=== PATIENT | male | born 1980 | race Caucasian/White ===

== ENCOUNTER 2017-03-23 18:16 | Inpatient (IN) | payer OTHER ==
[~2017-03-23] VITALS: Ht 175.3 cm; Wt 105.7 kg
--- NOTE | ~2017-03-23 | EKG ---
[address] [address] ELECTROCARDIOGRAM REPORT Name: ROYA STILES Room #: 236-P ADM IN M.R.#: [id number] Admission: 03/23/17 Attend Phys: Ang Andrew MD Discharge: Date of : 82 Report #: [id number] THIS REPORT FOR: //name// [facility] Test Date: 2017-03-26 Test Time: 15:02:10 Pat Name: ROYA STILES Department: Room: 236 P Gender: M Locum Tenens Psychiatrist: Ching LAGOS : 1980 Requested By: Frankie Morrissey Order Number: [id number] MD: Delroy Billingsley Measurements Intervals [place] Rate: 105 P: 55 NC: 137 QRS: 7 QRSD: 97 T: 61 QT: 336 QTc: 445 Interpretive Statements Sinus tachycardia Right ventricular conduction delay Compared to ECG 03/23/2017 19:16:02 No significant change was found Electronically Signed On 03-27-2017 17:01:24 CDT by Delroy Billingsley [email or web address] <ELECTRONICALLY SIGNED> By: Delroy Billingsley MD, [facility] 03/27/17 1701 1502 150 Delroy Billingsley MD, [facility] /EPI
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
--- NOTE | ~2017-03-23 | EKG ---
[address] [address] ELECTROCARDIOGRAM REPORT Name: LINSEYROYA Mcmullen Room #: 236-P [facility] IN M.R.#: [id number] Admission: 03/23/17 Attend Phys: Ang Andrew MD Discharge: Date of : 82 Report #: [id number] THIS REPORT FOR: //name// [facility] ED Test Date: 2017-03-23 Test Time: 19:16:02 Pat Name: ROYA STILES Department: Room: 236 Gender: M Product Transfer Pumper: BEN : 1980 Requested By: Yaniv Quintero Order Number: [id number] MD: Delroy Billingsley Measurements Intervals [place] Rate: 109 P: 78 NM: 146 QRS: 31 QRSD: 100 T: 78 QT: 339 QTc: 457 Interpretive Statements Sinus tachycardia RSR' in V1 or V2, right VCD No previous ECG available for comparison Electronically Signed On 03-24-2017 10:58:21 CDT by Delroy Billingsley [email or web address] <ELECTRONICALLY SIGNED> By: Delroy Billingsley MD, [facility] 03/24/17 1058 1915 15 Delroy Billingsley MD, FACC /EPI
--- NOTE | ~2017-03-23 | 2DMMODE ---
[facility] [address] [place] [address] 2 D/M-MODE ECHOCARDIOGRAM Name: ROYA STILES Room #: 236-P [facility] IN [facility]#: [id number] Admission: 03/23/17 Attend Phys: Ang Andrew MD Discharge: Date of : 82 Date of Service: 03/27/17 1012 Report #: [id number] THIS REPORT FOR: //name// APPROVED REPORT Study performed: 03/26/2017 14:04:28 EXAM: Comprehensive 2D, Doppler, and color-flow Echocardiogram Patient Location: ICU Room #: [facility] Status: routine Other Information Study Quality: Fair/ Technically limited study due to uncooperative patient. Limited mobility. Body habitus. Protocol not followed. Indications Dyspnea, PHTN. Hx: Drug and alcohol abuse, COPD, obesity 2D Dimensions RVDd: 34.82 mm LVEF(%): 52.51 (>50%) IVSd: 8.90 (7-11mm) LVOT Diam: 21.88 (18-24mm) LVDd: 55.48 mm PWd: 9.62 (7-11mm) Ascending Ao: 29.41 (22-36mm) LVDs: 40.34 (25-40mm) Aortic Root: 33.97 mm Alvarado's LVEF: 52.51 % Volumes Left Atrial Volume (Systole) Single Plane 4CH: 31.19 mL Single Plane 2CH: 60.68 mL LA ESV Index: 20.00 mL/m2 Aortic Valve AoV Peak Eduardo.: 1.45 m/s AO Peak Gr.: 8.45 mmHg LVOT Max P.07 mmHg LVOT Max V: 1.13 m/s SARA Vmax: 2.91 cm2 Mitral Valve IVRT: 65.74 ms Pulmonary Valve PV Peak Eduardo.: 1.27 m/s PV Peak Gr.: 6.42 mmHg [facility] [place] [address] 2 D/M-MODE ECHOCARDIOGRAM Name: ROYA STILES Benedict Room #: 236-P [facility] IN ..#: [id number] Admission: 03/23/17 Attend Phys: Ang Andrew MD Discharge: Date of : 82 Date of Service: 03/27/17 1012 Report #: [id number] Tricuspid Valve TR Peak Eduardo.: 3.02 m/s RAP Estimate: 10.00 mmHg TR Peak Gr.: 36.37 mmHg PA Pressure: 46.00 mmHg Left Ventricle The left ventricle is normal size. There is normal left ventricular wall thickness. The left ventricular systolic function is normal. LVEF is 50-55%. This study is not technically sufficient to allow evaluation of the LV diastolic function due to rapid heart rate. Right Ventricle The right ventricle is normal size. The right ventricular systolic function is normal. Atria The left atrium size is normal. The right atrium size is normal. Aortic Valve The aortic valve is normal in structure. No aortic regurgitation is present. There is no aortic valvular stenosis. Mitral Valve The mitral valve is normal in structure. There is no mitral valve regurgitation noted. No evidence of mitral valve stenosis. Tricuspid Valve The tricuspid valve is normal in structure. There is mild tricuspid regurgitation. The right atrial pressure is estimated at 10 mmHg. There is moderate pulmonary hypertension with an estimated PAP of 46mmHg. Pulmonic Valve The pulmonary valve is normal in structure. There is no pulmonic valvular regurgitation. Great Vessels The aortic root is normal in size. The ascending aorta is normal in size. IVC is normal in size and collapses <50% with inspiration. Pericardium There is no pericardial effusion. [address] [address] 2 D/M-MODE ECHOCARDIOGRAM Name: LINSEYROYA Room #: 236-P [facility] IN [facility]#: [id number] Admission: 03/23/17 Attend Phys: Ang Andrew MD Discharge: Date of : 82 Date of Service: 03/27/17 1012 Report #: [id number] <Conclusion> The left ventricle is normal size. LVEF is 50-55%. The right ventricle is normal size. The right ventricular systolic function is normal. The right atrium size is normal. The aortic valve is normal in structure. The mitral valve is normal in structure. The tricuspid valve is normal in structure. There is mild tricuspid regurgitation. The right atrial pressure is estimated at 10 mmHg. There is moderate pulmonary hypertension with an estimated PAP of 46mmHg. The pulmonary valve is normal in structure. <ELECTRONICALLY SIGNED> By: Mark Zendejas MD 03/27/17 1012 1012 1012 Mark Zendejas MD /INF
--- NOTE | ~2017-03-23 | HC ---
[facility] [place] [address] CONSULTATION Name: ROYA STILES Benedict Room #: 236-P [facility] IN .R.#: [id number] Admission: 03/23/17 Attend Phys: Ang Andrew MD Discharge: Date of : 82 Report #: [id number] THIS REPORT FOR: //name// CC: CLARI physician/PCP Ang Andrew DATE OF SERVICE: 03/26/2017 REASON FOR CONSULTATION: Acute on chronic respiratory failure. Forty minutes of critical care time. IMPRESSION: 1. Acute on chronic respiratory failure. 2. Exacerbation of asthma/chronic obstructive pulmonary disease. 3. Cardiomegaly. 4. History of deep venous thrombosis and pulmonary embolism. 5. Tobacco use. 6. Severe depression. 7. Heroin in meth abuse per chart. 8. History of Clostridium difficile. PLAN: Because of wheezing, we will check a BNP, echo, and EKG, hesitant to start antibiotics as no definite sputum production; however, obviously wheezing. We will start on corticosteroids, Pulmicort and continue current aerosol. Because of the hypercapnia ____ keeping him sedated during this time. We will try to just BiPAP depending on this. We will do venous Dopplers to ensure no PE. We will check a hypercoagulable panel. If the Dopplers are positive, we will need to consider an IVC filter in a patient with by report, GI bleed. Smoking cessation. Echocardiogram if abnormal, ____ help of cardiology. History taken per chart and discussion with the nurse. HISTORY OF PRESENT ILLNESS: A 36-year-old male admitted on 03/23/2017, has severe depression, heroin and meth abuse, recently signed out of [facility] with dyspnea, chest pain, and syncope. He has a history of pulmonary embolus and pneumonia in [place], was on Coumadin; however, developed GI bleed and this was stopped. He has been on Levaquin and corticosteroids of recent and had prolonged QT as a diagnosis. ALLERGIES: Dicloxacillin, penicillin, ibuprofen, and cyclobenzaprine. FAMILY HISTORY: Coronary artery disease. SOCIAL HISTORY: Positive tobacco, ETOH, and drugs of abuse. [facility] [address] [place] [address] CONSULTATION Name: LINSEYROYA Room #: 236-P [facility] IN [facility].#: [id number] Admission: 03/23/17 Attend Phys: Ang Andrew MD Discharge: Date of : 82 Report #: [id number] REVIEW OF SYSTEMS: Per chart include oxygen at 3 L at home, anemia, asthma, Suckeqg-Ibcpi-Fpyln disease, COPD, DVT in lower extremity, gastric ulcer with bleed, GERD, pulmonary embolus, prolonged QT, depression, and suicidal ideation. PHYSICAL EXAMINATION: VITAL SIGNS: Temperature 98.4, pulse 110, respiratory rate 13, and BP 143/80. EYES: Negative icterus. NECK: Negative JVD. BiPAP on, sedated. LUNGS: Coarse wheeze bilaterally. ABDOMEN: Bowel sounds present. EXTREMITIES: Bilateral foot deformities. On arms, IV sites. NEUROLOGIC: He was sedated on BiPAP, did not get history. LABORATORY DATA: Urine drug screen was negative. UA showed 1+ glucose. Troponin less than 0.04. X-ray of the abdomen and pelvis showed mild heart enlargement and nonspecific gas. CK-MB less than 0.5. White count 14.9, hemoglobin 12, platelets 268, and bands 1. CMP showed BUN 24, creatinine 1, and albumin 3.2. Alcohol less than 10. He was on SimCode also in the past per notes. We will follow closely with you. <ELECTRONICALLY SIGNED> By: Frankie Morrissey MD 04/01/17 1511 1420 1614 Frankie Morrissey MD /nt
--- NOTE | ~2017-03-23 | EKG ---
[address] [address] ELECTROCARDIOGRAM REPORT Name: LINSEYROYA Room #: 236-P ADM IN M.R.#: [id number] Admission: 03/23/17 Attend Phys: Ang Andrew MD Discharge: Date of : 82 Report #: [id number] THIS REPORT FOR: //name// [facility] Test Date: 2017-03-31 Test Time: 15:24:51 Pat Name: ROYA STILES Department: Room: 236 P Gender: M Housekeeping Associate: flaquita : 1980 Requested By: Kavon Lazcano Order Number: [id number] MD: Delroy Billingsley Measurements Intervals [place] Rate: 87 P: 60 RI: 130 QRS: 4 QRSD: 94 T: 67 QT: 375 QTc: 451 Interpretive Statements Sinus rhythm ST elev, probable normal early repol pattern Baseline wander in lead(s) V2,V4 Compared to ECG 03/28/2017 11:18:25 No significant change was found Electronically Signed On 04-02-2017 8:32:18 CDT by Delroy Billingsley [email or web address] <ELECTRONICALLY SIGNED> By: Delroy Billingsley MD, FACC 04/02/17 0832 1524 1524 Delroy Billingsley MD, [facility] /EPI
--- NOTE | ~2017-03-23 | EKG ---
[address] [place] [address] ELECTROCARDIOGRAM REPORT Name: ROYA STILES Room #: 236-P ADM IN M.R.#: [id number] Admission: 03/23/17 Attend Phys: Ang Andrew MD Discharge: Date of : 82 Report #: [id number] THIS REPORT FOR: //name// [facility] Test Date: 2017-03-28 Test Time: 11:18:25 Pat Name: ROYA STILES Department: Room: 236 P Gender: M Sales Associate Cashier: ETHAN : 1980 Requested By: Kavon Lazcano Order Number: [id number] MD: Delroy Billingsley Measurements Intervals [place] Rate: 103 P: 75 VA: 134 QRS: -1 QRSD: 98 T: 67 QT: 345 QTc: 452 Interpretive Statements Sinus tachycardia RSR' in V1 or V2, right VCD ST elev, probable normal early repol pattern Baseline wander in lead(s) V3 Compared to ECG 03/26/2017 15:02:10 No significant change was found Electronically Signed On 03-29-2017 8:29:00 CDT by Delroy Billingsley [email or web address] <ELECTRONICALLY SIGNED> By: Delroy Billingsley MD, [facility] 03/29/17 0829 1118 1118 Delroy Billingsley MD, [facility] /EPI
--- NOTE | ~2017-03-23 | 2DMMODE ---
[facility] [address] [place] [address] 2 D/M-MODE ECHOCARDIOGRAM Name: ROYA STILES Room #: 236-P [facility] IN [facility]#: [id number] Admission: 03/23/17 Attend Phys: Ang Andrew MD Discharge: Date of : 82 Date of Service: 04/01/17 0935 Report #: [id number] THIS REPORT FOR: //name// APPROVED REPORT Study performed: 04/01/2017 08:24:47 EXAM: Limited 2D, Doppler, and color-flow Echocardiogram Patient Location: Bedside Room #: 236 Other Information Study Quality: Adequate Technically limited study due to body habitus, uncooperative patient. Indications Pulmonary Embolism 2D Dimensions RVDd: 32.04 mm LVEF(%): 50.10 (>50%) IVSd: 11.08 (7-11mm) LVOT Diam: 22.64 (18-24mm) LVDd: 53.50 mm PWd: 10.65 (7-11mm) Ascending Ao: 26.16 (22-36mm) LVDs: 39.76 (25-40mm) Aortic Root: 29.04 mm IVC: 20.00 mm Alvarado's LVEF: 50.10 % Volumes Left Atrial Volume (Systole) Single Plane 4CH: 33.70 mL Single Plane 2CH: 20.44 mL Aortic Valve AoV Peak Eduardo.: 1.03 m/s AO Peak Gr.: 4.27 mmHg LVOT Max P.97 mmHg LVOT Max V: 1.00 m/s SARA Vmax: 3.88 cm2 Pulmonary Valve PV Peak Eduardo.: 1.29 m/s PV Peak Gr.: 6.68 mmHg Tricuspid Valve TR Peak Eduardo.: 2.74 m/s RAP Estimate: 5.00 mmHg TR Peak Gr.: 30.04 mmHg [facility] [place] [address] 2 D/M-MODE ECHOCARDIOGRAM Name: ROYA STILES Room #: 236-P [facility] IN [facility]#: [id number] Admission: 03/23/17 Attend Phys: Ang Andrew MD Discharge: Date of : 82 Date of Service: 04/01/17 0935 Report #: [id number] Left Ventricle The left ventricle is normal size. There is normal left ventricular wall thickness. Left ventricular systolic function is mildly decreased. LVEF is 50%. Right Ventricle The right ventricle is normal size. The right ventricular systolic function is normal. Atria The left atrium size is normal. The right atrium size is normal. Aortic Valve The aortic valve is normal in structure. No aortic regurgitation is present. There is no aortic valvular stenosis. Mitral Valve The mitral valve is normal in structure. Trace to mild mitral regurgitation. No evidence of mitral valve stenosis. Tricuspid Valve The tricuspid valve is normal in structure. There is trace to mild tricuspid regurgitation. The right atrial pressure is estimated at 5 mmHg. PAP is estimated at 35 mmHg. Pulmonic Valve The pulmonary valve is normal in structure. Great Vessels The aortic root is normal in size. IVC is upper limits of normal in size and collapses >50% with inspiration. <Conclusion> The left ventricle is normal size. Left ventricular systolic function is mildly decreased. LVEF is 50%. The right ventricle is normal size. The left atrium size is normal. The right atrium size is normal. The aortic valve is normal in structure. Trace to mild mitral regurgitation. [facility] [address] [place] [address] 2 D/M-MODE ECHOCARDIOGRAM Name: ROYA STILES Benedict Room #: 236-P [facility] IN ..#: [id number] Admission: 03/23/17 Attend Phys: Ang Andrew MD Discharge: Date of : 82 Date of Service: 04/01/1735 Report #: [id number] There is trace to mild tricuspid regurgitation. The right atrial pressure is estimated at 5 mmHg. PAP is estimated at 35 mmHg. <ELECTRONICALLY SIGNED> By: Get Balderrama MD, [facility] 04/01/1735 0935 Get Balderrama MD, FACC /INF
[2017-03-23 18:18] VITALS: BP 106/76
[2017-03-23] MEDS ORDERED: METHADONE (18:45)
[2017-03-23] MEDS ORDERED: BP MEDICATION (18:46)
[2017-03-23] MEDS ORDERED: XANAX1 MG PO (18:46)
[2017-03-23 19:29] LABS: HEMATOCRIT 36.2 % (42.0-52.0); MCH 29.1 pg (26.0-34.0); MCHC 33.2 g/dL (28.0-37.0); MCV 87.7 fL (80.0-100.0); PLATELET COUNT 268 thou/uL (150-400); RBC 4.13 mil/uL (4.50-6.00); WBC 14.9 thou/uL (4.0-11.0)
[2017-03-23 19:30] LABS: MANUAL DIFF YES
[2017-03-23 19:33] LABS: ABG SAMPLE TYPE VENOUS; BE(vivo) 1.9 mmol/L (-2 to +3); HCO3 25.9 mmol/L (22.0-26.0); LACTATE 1.35 mmol/L (0.5-2.0); O2(CT) 16.5 mL/dL (15.0-23.0); O2Hb VENOUS 90.3 (65.0-85.0); PCO2 VENOUS 38.7 mmHg (41.0-51.0); PO2 VENOUS 60.1 mmHg (35.0-45.0); STICK SITE L.BRACHIAL; sO2 VENOUS 92.1 % (65.0-85.0); tCO2 27.1 mmol/L (24.0-30.0)
[2017-03-23 19:39] LABS: ANION GAP 5 mmol/L (7-16); BUN 24 mg/dL (7-18); CALCIUM 8.9 mg/dL (8.5-10.1); CHLORIDE 108 mmol/L (98-107); CO2 31 mmol/L (21-32); GLUCOSE 113 mg/dL (74-106); POTASSIUM 4.1 mmol/L (3.5-5.1); SODIUM 144 mmol/L (136-145)
[2017-03-23 19:44] LABS: APTT 20.9 Seconds (24.5-32.8); PROTIME 9.7 Seconds (9.3-11.4)
[2017-03-23 19:50] LABS: ALBUMIN 3.2 g/dL (3.4-5.0); ALKALINE PHOSPHATASE 86 U/L (46-116); MAGNESIUM 2.1 mg/dL (1.8-2.4); NT-PRO BRAIN NAT PEPTIDE 539 pg/mL (<300); SALICYLATE 3.4 mg/dL (2.8-20.0); SGOT 11 U/L (15-37); SGPT 28 U/L (30-65); TOTAL BILIRUBIN 0.2 mg/dL (<0.1-1.0); TOTAL PROTEIN 6.9 g/dL (6.4-8.2); TROPONIN-I < 0.04 ng/mL (<0.04-0.07)
[2017-03-23 19:52] LABS: ACETAMINOPHEN < 2 ug/mL (10-30)
[2017-03-23 20:06] LABS: ABSOLUTE NEUTROPHILS 12.8 thou/uL (1.4-8.2); TOTAL CELL COUNT 100
[2017-03-23 20:45] VITALS: BP 131/78
[2017-03-23 21:16] VITALS: BP 131/78
[2017-03-23 21:20] VITALS: BP 135/89
[2017-03-23 22:07] VITALS: BP 132/81
[2017-03-23] MEDS ORDERED: ACCUNEB SO1.25 MG/1 PO (22:48)
[2017-03-23] MEDS ORDERED: SYMBICORT160 MCG/4. INH (22:49)
[2017-03-23] MEDS ORDERED: HYDROXYZINE HCL50 MG PO (22:50)
[2017-03-23] MEDS ORDERED: COMBIVENT RESPIM4 GM IH (22:51)
[2017-03-23] MEDS ORDERED: PAXIL10 MG PO (22:52)
[2017-03-23] MEDS ORDERED: LEVAQUIN 500 M500 M2 PO (22:52)
[2017-03-23] MEDS ORDERED: PREDNISONE 10 M10 MG PO ×2 (22:53→22:54)
[2017-03-23] MEDS ORDERED: PREDNISONE 20 M20 MG PO (22:54)
[2017-03-23] MEDS ORDERED: TRAZODONE HCL50 MG PO (22:54)
[2017-03-23 23:05] VITALS: BP 154/88
[2017-03-24] VITALS (13 sets, daily range): BP systolic 120–151; BP diastolic 70–95
[2017-03-24 06:08] LABS: URINE BILIRUBIN NEGATIVE (Negative); URINE BLOOD NEGATIVE (Negative); URINE COLOR YELLOW; URINE GLUCOSE-RANDOM* 1+ (Negative); URINE KETONES NEGATIVE (Negative); URINE LEUKOCYTES-REFLEX NEGATIVE (Negative); URINE PROTEIN (DIPSTICK) NEGATIVE (Negative); URINE UROBILINOGEN 0.2 E.U./dl (0.2-1.0)
[2017-03-24 06:23] LABS: AMP/METHAMP Negative (Negative); BARBITURATES Negative (Negative); BENZODIAZEPINES Negative (Negative); COCAINE Negative (Negative); METHADONE Negative (Negative); OPIATES Negative (Negative); PCP Negative (Negative); THC Negative (Negative)
[2017-03-25] VITALS (37 sets, daily range): BP systolic 100–199; BP diastolic 66–116
[2017-03-25 08:41] LABS: ABG SAMPLE TYPE ARTERIAL; BE(vivo) -3.1 mmol/L (-2 to +3); HCO3 26.8 mmol/L (22.0-26.0); LACTATE 0.87 mmol/L (0.5-2.0); O2(CT) 17.4 mL/dL (15.0-23.0); O2Hb 94.9 % (92.0-98.0); PO2 84.7 mmHg (80.0-100.0); sO2 93.4 % (92.0-98.0); tCO2 29.1 mmol/L (24.0-30.0)
[2017-03-25 08:42] LABS: PCO2 73.3 mmHg (35.0-45.0); pH 7.181 (7.360-7.450)
[2017-03-25 08:43] LABS: STICK SITE L.RADIAL
[2017-03-25 08:46] LABS: ABSOLUTE NEUTROPHILS 7.1 thou/uL (1.4-8.2); BASOPHILS 0.7 % (0.0-2.0); EOSINOPHILS 0.5 % (0.0-3.0); HEMATOCRIT 37.1 % (42.0-52.0); HEMOGLOBIN 12.2 gm/dL (14.0-18.0); LYMPHOCYTES 21.9 % (24.0-44.0); MCH 29.6 pg (26.0-34.0); MCHC 32.8 g/dL (28.0-37.0); MCV 90.1 fL (80.0-100.0); MONOCYTES 8.7 % (1.0-8.0); PLATELET COUNT 224 thou/uL (150-400); POLYS 68.2 % (36.0-66.0); RBC 4.12 mil/uL (4.50-6.00); RDW 15.6 % (10.5-14.5); WBC 10.5 thou/uL (4.0-11.0)
[2017-03-25 08:48] LABS: MANUAL DIFF NO
[2017-03-25 08:53] LABS: CALCIUM 8.4 mg/dL (8.5-10.1); CREATININE 1.2 mg/dL (0.7-1.3); POTASSIUM 4.8 mmol/L (3.5-5.1)
[2017-03-26] VITALS (25 sets, daily range): BP systolic 109–167; BP diastolic 66–108
[2017-03-26 11:31] LABS: ABG SAMPLE TYPE ARTERIAL; BE(vivo) 3.6 mmol/L (-2 to +3); LACTATE 0.87 mmol/L (0.5-2.0); O2(CT) 18.7 mL/dL (15.0-23.0); O2Hb 96.1 % (92.0-98.0); PO2 87.1 mmHg (80.0-100.0); sO2 94.9 % (92.0-98.0); tCO2 35.3 mmol/L (24.0-30.0)
[2017-03-26 11:32] LABS: PCO2 74.5 mmHg (35.0-45.0); pH 7.264 (7.360-7.450)
[2017-03-26 11:33] LABS: STICK SITE R.RADIAL; TIDAL VOLUME 660 ml
[2017-03-26 17:03] LABS: ALBUMIN 2.9 g/dL (3.4-5.0); ALKALINE PHOSPHATASE 81 U/L (46-116); ANION GAP 0 mmol/L (7-16); BUN 11 mg/dL (7-18); CALCIUM 8.6 mg/dL (8.5-10.1); CHLORIDE 100 mmol/L (98-107); CO2 39 mmol/L (21-32); CREATININE 0.7 mg/dL (0.7-1.3); GLUCOSE 100 mg/dL (74-106); MAGNESIUM 1.7 mg/dL (1.8-2.4); NT-PRO BRAIN NAT PEPTIDE 297 pg/mL (<300); POTASSIUM 4.5 mmol/L (3.5-5.1); SGOT 7 U/L (15-37); SGPT 21 U/L (30-65); SODIUM 139 mmol/L (136-145); TOTAL BILIRUBIN 0.6 mg/dL (<0.1-1.0); TOTAL PROTEIN 6.2 g/dL (6.4-8.2); TROPONIN-I < 0.04 ng/mL (<0.04-0.07)
[2017-03-26 17:59] LABS: ABG SAMPLE TYPE ARTERIAL; BE(vivo) 6.1 mmol/L (-2 to +3); HCO3 34.9 mmol/L (22.0-26.0); LACTATE 0.81 mmol/L (0.5-2.0); O2(CT) 18.3 mL/dL (15.0-23.0); O2Hb 95.9 % (92.0-98.0); PCO2 71.7 mmHg (35.0-45.0); PO2 92.2 mmHg (80.0-100.0); STICK SITE R.RADIAL; pH 7.305 (7.360-7.450); tCO2 37.1 mmol/L (24.0-30.0)
[2017-03-26 18:00] LABS: Pressure Support 8 cm H20
[2017-03-27] VITALS (24 sets, daily range): BP systolic 114–159; BP diastolic 75–126
[2017-03-27 04:10] LABS: HEMATOCRIT 35.5 % (42.0-52.0); MCH 29.2 pg (26.0-34.0); MCHC 33.7 g/dL (28.0-37.0); MCV 86.7 fL (80.0-100.0); RBC 4.1 mil/uL (4.50-6.00); RDW 14.4 % (10.5-14.5); WBC 11.4 thou/uL (4.0-11.0)
[2017-03-27 04:17] LABS: CALCIUM 8.6 mg/dL (8.5-10.1); CREATININE 0.6 mg/dL (0.7-1.3); MAGNESIUM 1.7 mg/dL (1.8-2.4); POTASSIUM 4.6 mmol/L (3.5-5.1)
[2017-03-27 04:49] LABS: ABG SAMPLE TYPE ARTERIAL; BE(vivo) 7.9 mmol/L (-2 to +3); HCO3 37.2 mmol/L (22.0-26.0); LACTATE 0.99 mmol/L (0.5-2.0); O2(CT) 17.8 mL/dL (15.0-23.0); O2Hb 94.4 % (92.0-98.0); PCO2 76.9 mmHg (35.0-45.0); PO2 78.1 mmHg (80.0-100.0); Pressure Support 8 cm H20; STICK SITE L.RADIAL; sO2 93.7 % (92.0-98.0); tCO2 39.5 mmol/L (24.0-30.0)
[2017-03-27 04:50] LABS: ABG COMMENT BIPAP 16/ 8; pH 7.302 (7.360-7.450)
[2017-03-27 07:46] LABS: ABG SAMPLE TYPE ARTERIAL; BE(vivo) 7.6 mmol/L (-2 to +3); HCO3 35.4 mmol/L (22.0-26.0); LACTATE 1.24 mmol/L (0.5-2.0); O2(CT) 18.2 mL/dL (15.0-23.0); O2Hb 96.3 % (92.0-98.0); PCO2 64.8 mmHg (35.0-45.0); PO2 98.7 mmHg (80.0-100.0); pH 7.355 (7.360-7.450); tCO2 37.4 mmol/L (24.0-30.0)
[2017-03-27 07:47] LABS: STICK SITE R.RADIAL; TIDAL VOLUME 500 ml
[2017-03-27 20:42] LABS: ABG SAMPLE TYPE ARTERIAL; BE(vivo) 8.2 mmol/L (-2 to +3); HCO3 33.3 mmol/L (22.0-26.0); LACTATE 2.03 mmol/L (0.5-2.0); O2(CT) 16.8 mL/dL (15.0-23.0); O2Hb 93.7 % (92.0-98.0); PCO2 48.1 mmHg (35.0-45.0); PO2 67.6 mmHg (80.0-100.0); STICK SITE R.RADIAL; pH 7.458 (7.360-7.450); sO2 94.2 % (92.0-98.0); tCO2 34.8 mmol/L (24.0-30.0)
[2017-03-28] VITALS (25 sets, daily range): BP systolic 119–163; BP diastolic 66–131
[2017-03-29] VITALS (22 sets, daily range): BP systolic 127–183; BP diastolic 72–116
[2017-03-29] MEDS ORDERED: VANCOMYCIN100 MG/ML PO (11:44)
[2017-03-29] MEDS ORDERED: NICOTINE TRANSD21 M1 TRANSDERM (11:45)
[2017-03-29] MEDS ORDERED: PREDNISONE 10 M10 MG PO (11:47)
[2017-03-30] VITALS (22 sets, daily range): BP systolic 123–162; BP diastolic 66–106
[2017-03-30 02:08] LABS: ANTITHROMBIN III 103 % (75-135); DIL. RUSSELL VIPER VENOM 40.9 sec (0.0-47.0)
[2017-03-31] VITALS (20 sets, daily range): BP systolic 52–153; BP diastolic 23–115
[2017-03-31 19:18] LABS: HEMATOCRIT 39.6 % (42.0-52.0); HEMOGLOBIN 13.2 gm/dL (14.0-18.0); MCH 28.9 pg (26.0-34.0); MCHC 33.2 g/dL (28.0-37.0); MCV 87.1 fL (80.0-100.0); RBC 4.55 mil/uL (4.50-6.00); RDW 14.8 % (10.5-14.5); WBC 17.9 thou/uL (4.0-11.0)
[2017-03-31 19:33] LABS: APTT 23.5 Seconds (24.5-32.8); PROTIME 9.5 Seconds (9.3-11.4)
[2017-04-01 01:10] VITALS: BP 129/98
[2017-04-01 05:45] VITALS: BP 127/87
[2017-04-01 06:24] LABS: CALCIUM 9.2 mg/dL (8.5-10.1); CREATININE 0.8 mg/dL (0.7-1.3); POTASSIUM 4.9 mmol/L (3.5-5.1)
[2017-04-01 06:26] VITALS: BP 118/88
[2017-04-02] VITALS (12 sets, daily range): BP systolic 102–128; BP diastolic 65–105
[2017-04-02 05:47] LABS: APTT 56.5 Seconds (24.5-32.8); PROTIME 9.9 Seconds (9.3-11.4)
[2017-04-03 04:38] LABS: HEMATOCRIT 41.2 % (42.0-52.0); HEMOGLOBIN 13.7 gm/dL (14.0-18.0); MCH 28.9 pg (26.0-34.0); MCHC 33.3 g/dL (28.0-37.0); MCV 86.6 fL (80.0-100.0); RBC 4.75 mil/uL (4.50-6.00); RDW 15.1 % (10.5-14.5); WBC 15.7 thou/uL (4.0-11.0)
[2017-04-03 05:04] LABS: PROTIME 10.4 Seconds (9.3-11.4)
[2017-04-03 05:05] LABS: APTT 26.9 Seconds (24.5-32.8)
[2017-04-04 05:04] LABS: APTT 31.4 Seconds (24.5-32.8); INR 1.2; PROTIME 12.5 Seconds (9.3-11.4)
[2017-04-05 09:14] LABS: INR 1.3; PROTIME 13.1 Seconds (9.3-11.4)
[2017-04-05 20:00] VITALS: BP 121/102
[2017-04-05 20:57] VITALS: BP 127/83
[2017-04-05 22:00] VITALS: BP 132/77
[2017-04-06] VITALS: BP 96/74
[2017-04-06 02:00] VITALS: BP 130/94
[2017-04-06 04:00] VITALS: BP 140/81
[2017-04-06 04:50] LABS: INR 1.4; PROTIME 14.4 Seconds (9.3-11.4)
[2017-04-06 04:52] LABS: CALCIUM 8.7 mg/dL (8.5-10.1); CREATININE 0.8 mg/dL (0.7-1.3); POTASSIUM 4.1 mmol/L (3.5-5.1)
[2017-04-06 06:00] VITALS: BP 121/72
[2017-04-07 06:16] LABS: HEMATOCRIT 36.4 % (42.0-52.0); HEMOGLOBIN 11.9 gm/dL (14.0-18.0); MCH 28.6 pg (26.0-34.0); MCHC 32.7 g/dL (28.0-37.0); MCV 87.5 fL (80.0-100.0); RBC 4.15 mil/uL (4.50-6.00); RDW 15.4 % (10.5-14.5)
[2017-04-07 06:25] VITALS: BP 134/87
[2017-04-07 08:00] VITALS: BP 101/55
[2017-04-07 10:00] VITALS: BP 126/77
[2017-04-07 10:21] LABS: PROTIME 24.2 Seconds (9.3-11.4)
[2017-04-07 10:29] LABS: INR 2.4
[2017-04-07 12:00] VITALS: BP 129/81
[2017-04-07 18:00] VITALS: BP 114/69
[2017-04-08 06:27] LABS: INR 2.8; PROTIME 28.3 Seconds (9.3-11.4)
[2017-04-08 08:00] VITALS: BP 127/89
[2017-04-08] MEDS ORDERED: METHADONE HCL 110 MG PO (08:55)
[2017-04-08] MEDS ORDERED: SEROQUEL 100 M100 MG PO ×2 (08:55)
[2017-04-08] MEDS ORDERED: PREDNISONE 20 M20 M1 PO (08:55)
[2017-04-08] MEDS ORDERED: VANCOCIN 250 M250 M1 PO (08:55)
[2017-04-08] MEDS ORDERED: COUMADIN 5 MG TA5 M1 PO (08:55)
[2017-04-08 12:00] VITALS: BP 127/81
[2017-04-08 16:00] VITALS: BP 136/85
[2017-04-09 06:26] LABS: PROTIME 29.8 Seconds (9.3-11.4)
[2017-04-09 08:00] VITALS: BP 102/63
[2017-04-09 10:43] VITALS: BP 102/63
[2017-04-09] MEDS ORDERED: COUMADIN 5 MG TA5 M1 PO (11:46)
[2017-04-09 12:14] VITALS: BP 102/63
[2017-04-09 12:33] VITALS: BP 102/63
[2017-04-09 12:36] VITALS: BP 102/63
[2017-04-09 13:12] VITALS: BP 102/63
== END 2017-04-09 13:15 | disposition home health service (06) | DRG 189 ==
LOC: ER 18:16 → EROBS 20:16 → ICU 20:16
PROVIDERS: Emergency Medicine; Hospitalist; Internal Medicine; Internal Medicine Pulmonary Disease
PROC: 5A09457 Assistance with Respiratory Ventilation, 24-96 Consecutive Hours, Continuous Positive Airway Pressure (ICD-10-PCS; principal; 2017-03-25)
PROC: 02HV33Z Insertion of Infusion Device into Superior Vena Cava, Percutaneous Approach (ICD-10-PCS; 2017-03-26)
DX: J96.22 Acute and chronic respiratory failure with hypercapnia (principal); G92 Toxic encephalopathy; I26.99 Other pulmonary embolism without acute cor pulmonale; A04.7 Enterocolitis due to Clostridium difficile; R45.851 Suicidal ideations; J45.901 Unspecified asthma with (acute) exacerbation; J44.1 Chronic obstructive pulmonary disease with (acute) exacerbation; F10.230 Alcohol dependence with withdrawal, uncomplicated; F31.63 Bipolar disorder, current episode mixed, severe, without psychotic features; F15.20 Other stimulant dependence, uncomplicated; J96.21 Acute and chronic respiratory failure with hypoxia; I51.7 Cardiomegaly; K21.9 Gastro-esophageal reflux disease without esophagitis; F11.10 Opioid abuse, uncomplicated; F17.210 Nicotine dependence, cigarettes, uncomplicated; G47.30 Sleep apnea, unspecified; G60.0 Hereditary motor and sensory neuropathy; E66.9 Obesity, unspecified; Z68.34 Body mass index [BMI] 34.0-34.9, adult; Z86.718 Personal history of other venous thrombosis and embolism; Z99.81 Dependence on supplemental oxygen; Z91.14 Patient's other noncompliance with medication regimen; Z87.11 Personal history of peptic ulcer disease; Z87.01 Personal history of pneumonia (recurrent); Z86.711 Personal history of pulmonary embolism; Z79.899 Other long term (current) drug therapy; Z88.0 Allergy status to penicillin; Z88.8 Allergy status to other drugs, medicaments and biological substances; Z82.49 Family history of ischemic heart disease and other diseases of the circulatory system
CPT/HCPCS: 10203; 27000

== ENCOUNTER 2017-09-28 07:01 | Emergency (ER) | payer OTHER ==
[~2017-09-28] VITALS: Ht 175.3 cm; Wt 122.5 kg
--- NOTE | ~2017-09-28 | EKG ---
[place] [address] [address] [facility] [place] [address] ELECTROCARDIOGRAM REPORT Name: ROYA STILES [facility] [id number] Admission: 09/28/17 Attend Phys: Discharge: Date of : 82 Report #: [id number] THIS REPORT FOR: //name// [facility] ED Test Date: 2017-09-28 Test Time: 08:12:22 Pat Name: ROYA STILES Department: Room: Gender: Director Of Marketing: [place] : 1980 Requested By: Rosana Mcconnell Order Number: [id number] MD: Carlos Alberto Sánchez Measurements Intervals [place] Rate: 95 P: 50 CO: 134 QRS: -4 QRSD: 94 T: 67 QT: 363 QTc: 457 Interpretive Statements Sinus rhythm RSR' in V1 or V2, right VCD or RVH Electronically Signed On 09-28-2017 9:19:12 CLOTH SHEARING SUPERVISOR by Carlos Alberto Sánchez [email or web address] <ELECTRONICALLY SIGNED> By: Carlos Alberto Sánchez MD 09/28/17 09 1 1 Carlos Alberto Sánchez MD /MILES
[~2017-09-28 07:01] MED LIST: ACCUNEB SO1.25 MG/1 PO; BP MEDICATION; COMBIVENT RESPIM4 GM IH; COUMADIN 5 MG TA5 M1 PO; HYDROXYZINE HCL50 MG PO; LEVAQUIN 500 M500 M2 PO; METHADONE; METHADONE HCL 110 MG PO; NICOTINE TRANSD21 M1 TRANSDERM; PAXIL10 MG PO; PREDNISONE 10 M10 MG PO; PREDNISONE 20 M20 M1 PO; PREDNISONE 20 M20 MG PO; SEROQUEL 100 M100 MG PO; SYMBICORT160 MCG/4. INH; TRAZODONE HCL50 MG PO; VANCOCIN 250 M250 M1 PO; VANCOMYCIN100 MG/ML PO; XANAX1 MG PO
[2017-09-28 07:29] LABS: ABSOLUTE NEUTROPHILS 7.4 thou/uL (1.4-8.2); BASOPHILS 0.7 % (0.0-2.0); EOSINOPHILS 1.6 % (0.0-3.0); HEMATOCRIT 37.7 % (42.0-52.0); HEMOGLOBIN 12.5 gm/dL (14.0-18.0); LYMPHOCYTES 15.7 % (24.0-44.0); MCH 26.6 pg (26.0-34.0); MCHC 33.1 g/dL (28.0-37.0); MCV 80.3 fL (80.0-100.0); MONOCYTES 8.8 % (1.0-8.0); PLATELET COUNT 232 thou/uL (150-400); POLYS 73.2 % (36.0-66.0); RDW 16.6 % (10.5-14.5); WBC 10.1 thou/uL (4.0-11.0)
[2017-09-28 07:43] LABS: BE(vivo) 6.3 mmol/L (-2 to +3); HCO3 33.2 mmol/L (22.0-26.0); PCO2 58.3 mmHg (35.0-45.0); PO2 105.3 mmHg (80.0-100.0); pH 7.373 (7.360-7.450); sO2 97.6 % (92.0-98.0)
[2017-09-28 08:01] LABS: ANION GAP 2 mmol/L (7-16); BUN 21 mg/dL (7-18); CALCIUM 8.9 mg/dL (8.5-10.1); CHLORIDE 102 mmol/L (98-107); CO2 37 mmol/L (21-32); CREATININE 0.9 mg/dL (0.7-1.3); GLUCOSE 124 mg/dL (74-106); POTASSIUM 3.9 mmol/L (3.5-5.1); SODIUM 141 mmol/L (136-145)
[2017-09-28 08:06] LABS: APTT 25.7 Seconds (24.5-32.8); PROTIME 9.9 Seconds (9.3-11.4)
[2017-09-28 08:11] LABS: ALBUMIN 3.4 g/dL (3.4-5.0); DIRECT BILIRUBIN 0.1 mg/dL (<0.1-0.3); LIPASE 307 U/L (73-393); SGOT 12 U/L (15-37); SGPT 28 U/L (30-65); TOTAL BILIRUBIN 0.3 mg/dL (<0.1-1.0); TOTAL PROTEIN 6.7 g/dL (6.4-8.2); TROPONIN-I < 0.04 ng/mL (<0.06)
[2017-09-28 09:25] VITALS: BP 135/65
== END 2017-09-28 10:06 | disposition home or self-care (01) ==
LOC: ER 07:01
PROVIDERS: Emergency Medicine
DX: J44.1 Chronic obstructive pulmonary disease with (acute) exacerbation (principal); K21.9 Gastro-esophageal reflux disease without esophagitis; F11.10 Opioid abuse, uncomplicated; F17.210 Nicotine dependence, cigarettes, uncomplicated; Z88.0 Allergy status to penicillin; Z88.1 Allergy status to other antibiotic agents; Z88.6 Allergy status to analgesic agent